=== PATIENT | female | born 1930 | race Caucasian/White ===

== ENCOUNTER 2018-05-11 09:02 | Observation (INO) | payer MEDICARE ==
[~2018-05-11] VITALS: Ht 172.7 cm; Wt 62.1 kg
[2018-05-11] MEDS ORDERED: VERA120T5 PO (09:38)
[2018-05-11] MEDS ORDERED: METF500T27 PO (09:38)
[2018-05-11] MEDS ORDERED: FLEC50TA25 PO (09:39)
[2018-05-11] MEDS ORDERED: GABA300C10 PO (09:39)
[2018-05-11] MEDS ORDERED: APIX5TAB PO (09:41)
[2018-05-11 09:49] LABS: ALBUMIN 3.8 g/dL (3.4-5.0); ANION GAP 8 mmol/L (5-15); CALCIUM 8.7 mg/dL (8.5-10.1); CHLORIDE 107 mmol/L (98-107); CREATININE 0.91 mg/dL (0.55-1.02)
[2018-05-11 09:53] LABS: TROPONIN I < 0.015 ng/mL (0.000-0.045)
[2018-05-11 09:54] LABS: BASOPHILS # (AUTO) 0.04 x10^3/uL (0-0.1); BASOPHILS % (AUTO) 1 % (0-1); EOSINOPHILS # (AUTO) 0.12 x10^3/uL (0-0.4); EOSINOPHILS % (AUTO) 2 % (1-7); LYMPHOCYTES # (AUTO) 1.52 x10^3/uL (1-3.4); LYMPHOCYTES % (AUTO) 27 % (22-44); MD NO; MEAN CORPUSCULAR HEMOGLOBIN 30.2 pg (27.0-34.8); MEAN CORPUSCULAR HGB CONC 33.1 g/dL (32.4-35.8); MEAN CORPUSCULAR VOLUME 91.2 fL (80-100); MEAN PLATELET VOLUME 7.8 fL (7.4-10.4); MONOCYTES % (AUTO) 11 % (2-9); NEUTROPHILS # (AUTO) 3.27 x10^3/uL (1.8-6.8); NEUTROPHILS % (AUTO) 59 % (42-75); PLATELET COUNT 223 x10^3/uL (130-400); RED BLOOD COUNT 4.83 x10^6/uL (3.82-5.3)
[2018-05-11] MEDS ORDERED: APIXABAN 5 MG TABLET ONE ×2 (10:36→10:37)
[2018-05-11] MEDS ORDERED: APIXABAN 5 MG TABLET PO ONE (11:00)
[2018-05-11 14:00] VITALS: BP 138/72
[2018-05-11] MEDS ORDERED: ONDANSETRON ODT 4 MG PO PRN (14:30)
[2018-05-11] MEDS ORDERED: ONDANSETRON 2MG/ML, 2ML IVPush PRN (14:30)
[2018-05-11] MEDS ORDERED: ZOLPIDEM 5MG TABLET PO PRN (14:30)
[2018-05-11] MEDS ORDERED: DOCUSATE 100 MG CAPSULE PO PRN (14:30)
[2018-05-11] MEDS ORDERED: BISACODYL 10 MG SUPP PR PRN (14:30)
[2018-05-11] MEDS ORDERED: ACETAMINOPHEN 325 MG TABLET PO PRN (14:30)
[2018-05-11] MEDS ORDERED: hydrALAzine 20 MG/ML, 1ML IVPush PRN (14:30)
[2018-05-11 14:55] LABS: HCT (SEDRATE) 41.9 % (34.6-47.8)
[2018-05-11 15:07] LABS: FREE T4 (FREE THYROXINE) 1.13 ng/dL (0.76-1.46); TROPONIN I < 0.015 ng/mL (0.000-0.045)
[2018-05-11 16:03] LABS: CULTURE INDICATED? YES; MICROSCOPIC AUTO
[2018-05-11 20:19] VITALS: BP 145/76
[2018-05-11] MEDS: metFORMIN 500 MG TABLET PO SCH (20:32)
[2018-05-11] MEDS: FLECAINIDE 50MG TABLET PO SCH (20:32)
[2018-05-11] MEDS: VERAPAMIL 120MG TABLET PO SCH (20:32)
[2018-05-11] MEDS: APIXABAN 5 MG TABLET PO SCH (20:33)
[2018-05-11 20:49] LABS: TROPONIN I < 0.015 ng/mL (0.000-0.045)
[2018-05-12 01:25] VITALS: BP 110/60
[2018-05-12 06:00] LABS: BASOPHILS # (AUTO) 0.04 x10^3/uL (0-0.1); BASOPHILS % (AUTO) 1 % (0-1); EOSINOPHILS % (AUTO) 4 % (1-7); LYMPHOCYTES # (AUTO) 1.97 x10^3/uL (1-3.4); LYMPHOCYTES % (AUTO) 36 % (22-44); MD NO; MEAN CORPUSCULAR HEMOGLOBIN 31.3 pg (27.0-34.8); MEAN CORPUSCULAR HGB CONC 34.1 g/dL (32.4-35.8); MEAN CORPUSCULAR VOLUME 91.8 fL (80-100); MEAN PLATELET VOLUME 7.4 fL (7.4-10.4); MONOCYTES # (AUTO) 0.58 x10^3/uL (0.2-0.8); MONOCYTES % (AUTO) 11 % (2-9); NEUTROPHILS # (AUTO) 2.68 x10^3/uL (1.8-6.8); NEUTROPHILS % (AUTO) 49 % (42-75); PLATELET COUNT 184 x10^3/uL (130-400); RED BLOOD COUNT 4.23 x10^6/uL (3.82-5.3); RED CELL DISTRIBUTION WIDTH 14.1 % (9.6-15.2)
[2018-05-12 06:11] LABS: ANION GAP 7 mmol/L (5-15); CALCIUM 8.5 mg/dL (8.5-10.1); CHLORIDE 111 mmol/L (98-107)
[2018-05-12 06:15] LABS: CHOL/HDL RATIO 2.4; CHOLESTEROL, TOTAL 174 mg/dL (140-239); CREATININE 0.74 mg/dL (0.55-1.02); HDL CHOL % 43 % (28-40); HDL CHOLESTEROL (DIRECT) 74 mg/dL (40-60); LDL CHOLESTEROL,CALCULATED 83 mg/dL (54-169); LDL/HDL RATIO 1.1 (0.5-3.0); TRIGLYCERIDES 84 mg/dL (50-200); VLDL CHOLESTEROL 17 mg/dL (0-25)
[2018-05-12 07:18] VITALS: BP 152/69
[2018-05-12] MEDS ORDERED: GABAPENTIN 100 MG CAPSULE PO SCH (09:00)
[2018-05-12] MEDS: APIXABAN 5 MG TABLET PO SCH (10:03)
[2018-05-12] MEDS: FLECAINIDE 50MG TABLET PO SCH (10:03)
[2018-05-12] MEDS: metFORMIN 500 MG TABLET PO SCH (10:03)
[2018-05-12] MEDS: VERAPAMIL 120MG TABLET PO SCH (10:03)
== END 2018-05-12 16:01 | disposition home or self-care (01) ==
LOC: ED 09:44 → INTOOBSV 10:53 → EDIP 10:53 → 5SO 13:00
PROVIDERS: ADMIT Hospitalist; ATTEND Hospitalist
DX: R42 Dizziness and giddiness (principal); R11.0 Nausea; I48.0 Paroxysmal atrial fibrillation; E11.40 Type 2 diabetes mellitus with diabetic neuropathy, unspecified; Z79.82 Long term (current) use of aspirin; Z83.3 Family history of diabetes mellitus
CPT/HCPCS: 36415; 71045; 80048; 80061; 81001; 82040; 83880; 84439; 84443; 84484; 85025; 85651; 87086; 93005; 93306; 97161; 99284; G0378; G8978; G8979; G8980

== ENCOUNTER 2018-05-23 10:55 | Emergency (ER) | payer MEDICARE ==
[~2018-05-23] VITALS: Ht 175.3 cm; Wt 77.0 kg
[~2018-05-23 10:55] MED LIST: APIX5TAB PO; FLEC50TA25 PO; GABA300C10 PO; METF500T27 PO; VERA120T5 PO
--- NOTE | 2018-05-23 11:11 | NUR ---
PT STRAIGHT BACK FROM LOBBY FOR C/O CP AND FEELING OF ARRYTHMIA APPROX 30 MINUTES.
[2018-05-23 11:12] VITALS: BP 149/56
[2018-05-23 11:53] LABS: BASOPHILS # (AUTO) 0.03 x10^3/uL (0-0.1); BASOPHILS % (AUTO) 1 % (0-1); EOSINOPHILS # (AUTO) 0.13 x10^3/uL (0-0.4); EOSINOPHILS % (AUTO) 2 % (1-7); LYMPHOCYTES # (AUTO) 1.58 x10^3/uL (1-3.4); LYMPHOCYTES % (AUTO) 25 % (22-44); MD NO; MEAN CORPUSCULAR HGB CONC 33.7 g/dL (32.4-35.8); MEAN CORPUSCULAR VOLUME 92.1 fL (80-100); MEAN PLATELET VOLUME 7.1 fL (7.4-10.4); MONOCYTES # (AUTO) 0.75 x10^3/uL (0.2-0.8); MONOCYTES % (AUTO) 12 % (2-9); NEUTROPHILS # (AUTO) 3.75 x10^3/uL (1.8-6.8); NEUTROPHILS % (AUTO) 60 % (42-75); PLATELET COUNT 203 x10^3/uL (130-400); RED BLOOD COUNT 4.55 x10^6/uL (3.82-5.3); RED CELL DISTRIBUTION WIDTH 13.7 % (9.6-15.2)
[2018-05-23 12:03] LABS: ALBUMIN 3.6 g/dL (3.4-5.0); ANION GAP 3 mmol/L (5-15); CALCIUM 8.9 mg/dL (8.5-10.1); CHLORIDE 109 mmol/L (98-107)
[2018-05-23 12:06] LABS: TROPONIN I < 0.015 ng/mL (0.000-0.045)
--- NOTE | 2018-05-23 12:25 | NUR ---
patient remains safe in bed in room with daughter at bedside, no acute changes noted, no chest pains now, recheck status.
== END 2018-05-23 14:21 | disposition home or self-care (01) ==
LOC: ED 11:35
DX: R07.89 Other chest pain (principal); I48.91 Unspecified atrial fibrillation; E11.9 Type 2 diabetes mellitus without complications; Z90.49 Acquired absence of other specified parts of digestive tract
CPT/HCPCS: 36415; 80048; 82040; 84484; 85025; 93005; 99284

== ENCOUNTER 2019-03-23 15:21 | Inpatient (IN) | payer MEDICARE ==
[~2019-03-23] VITALS: Ht 175.3 cm; Wt 81.6 kg
[2019-03-23 16:21] LABS: BASOPHILS # (AUTO) 0.04 x10^3/uL (0-0.1); BASOPHILS % (AUTO) 1 % (0-1); EOSINOPHILS # (AUTO) 0.15 x10^3/uL (0-0.4); EOSINOPHILS % (AUTO) 2 % (1-7); LYMPHOCYTES # (AUTO) 2.18 x10^3/uL (1-3.4); LYMPHOCYTES % (AUTO) 31 % (22-44); MD NO; MEAN CORPUSCULAR HEMOGLOBIN 32.3 pg (27.0-34.8); MEAN CORPUSCULAR HGB CONC 33.5 g/dL (32.4-35.8); MEAN CORPUSCULAR VOLUME 96.5 fL (80-100); MEAN PLATELET VOLUME 7.2 fL (7.4-10.4); MONOCYTES % (AUTO) 10 % (2-9); NEUTROPHILS # (AUTO) 4.02 x10^3/uL (1.8-6.8); NEUTROPHILS % (AUTO) 57 % (42-75); PLATELET COUNT 225 x10^3/uL (130-400); RED BLOOD COUNT 4.93 x10^6/uL (3.82-5.3); RED CELL DISTRIBUTION WIDTH 15.6 % (9.6-15.2)
[2019-03-23 16:29] LABS: ALANINE AMINOTRANSFERASE 18 U/L (12-78); ALBUMIN 3.9 g/dL (3.4-5.0); ANION GAP 8 mmol/L (5-15); CALCIUM 9.2 mg/dL (8.5-10.1); CHLORIDE 108 mmol/L (98-107); CREATININE 0.89 mg/dL (0.55-1.02)
[2019-03-23 16:33] LABS: ALKALINE PHOSPHATASE 87 U/L (45-117); BILIRUBIN,TOTAL 0.9 mg/dL (0.2-1.0); TOTAL PROTEIN 7.6 g/dL (6.4-8.2); TROPONIN I < 0.015 ng/mL (0.000-0.045)
--- NOTE | 2019-03-23 17:56 | NUR ---
Pt transfered from ED room to CT on sahra. NEPTALI. No needs expressed.
[2019-03-23 18:09] LABS: MICROSCOPIC NOT IND
[2019-03-23 18:11] LABS: CULTURE INDICATED? NO
[2019-03-23] MEDS ORDERED: hydrALAzine 20 MG/ML, 1ML ONE (18:24)
[2019-03-23] MEDS ORDERED: hydrALAzine 20 MG/ML, 1ML IV ONE (18:30)
--- NOTE | 2019-03-23 18:57 | NUR ---
Provided report to LATONIA Jalloh. All questions answered. LATONIA Jalloh to assume care of pt at this time.
[2019-03-23] MEDS ORDERED: VALA10004 PO ×2 (19:14→19:16)
[2019-03-23] MEDS ORDERED: GABA300C10 PO (19:14)
[2019-03-23] MEDS ORDERED: VERA120T5 PO (19:14)
--- NOTE | 2019-03-23 19:17 | NUR ---
pt resting on gurney, family at bedside, siderails up x2, call light within reach. awaiting admit
--- NOTE | 2019-03-23 19:59 | NUR ---
purwick catheter with suction placed
[2019-03-23 20:51] VITALS: BP 180/70
[2019-03-23] MEDS ORDERED: TEMAZEPAM 15 MG CAPSULE PO PRN (21:00)
[2019-03-23] MEDS ORDERED: ENALAPRILAT 1.25 MG/ML, 2ML IV PRN (21:00)
[2019-03-23] MEDS ORDERED: ONDANSETRON 2MG/ML, 2ML IVPush PRN (21:00)
[2019-03-23] MEDS ORDERED: ACETAMINOPHEN 650 MG/20.3 ML UDC PO PRN (21:00)
[2019-03-23] MEDS ORDERED: morphine SULFATE 10 MG/ML, 1ML IVPush PRN (21:00)
[2019-03-23] MEDS ORDERED: VALACYCLOVIR 500MG TABLET PO SCH (21:30)
[2019-03-23] MEDS ORDERED: LORazepam 2 MG/ML, 1ML IVPush ONE (21:30)
[2019-03-23 21:38] LABS: TROPONIN I < 0.015 ng/mL (0.000-0.045)
[2019-03-23 21:40] VITALS: BP 179/74
[2019-03-23 22:00] VITALS: BP 164/80
[2019-03-23] MEDS: INSULIN LISPRO 100 UNITS/ML, PEN SQ-INSULIN SCH (23:00)
[2019-03-23] MEDS ORDERED: VALACYCLOVIR 500MG TABLET ONE (23:07)
[2019-03-23] MEDS: FLECAINIDE 50MG TABLET PO SCH (23:11)
[2019-03-23] MEDS: ATORVASTATIN 40 MG TABLET PO SCH (23:11)
[2019-03-23] MEDS: GABAPENTIN 100 MG CAPSULE PO SCH (23:11)
[2019-03-23] MEDS: APIXABAN 5 MG TABLET PO SCH (23:11)
[2019-03-24] VITALS (11 sets, daily range): BP systolic 112–160; BP diastolic 63–82
[2019-03-24] MEDS ORDERED: DEXTROSE 4 GM TAB.CHEW PO PRN
[2019-03-24] MEDS ORDERED: GLUCAGON 1 MG IM PRN
[2019-03-24] MEDS ORDERED: DEXTROSE 50%, 50ML SYRINGE IVPush PRN
[2019-03-24 02:50] LABS: BASOPHILS # (AUTO) 0.03 x10^3/uL (0-0.1); BASOPHILS % (AUTO) 0 % (0-1); EOSINOPHILS # (AUTO) 0.05 x10^3/uL (0-0.4); EOSINOPHILS % (AUTO) 1 % (1-7); LYMPHOCYTES # (AUTO) 1.34 x10^3/uL (1-3.4); LYMPHOCYTES % (AUTO) 19 % (22-44); MD NO; MEAN CORPUSCULAR HEMOGLOBIN 32.2 pg (27.0-34.8); MEAN CORPUSCULAR HGB CONC 33.5 g/dL (32.4-35.8); MEAN CORPUSCULAR VOLUME 96.3 fL (80-100); MEAN PLATELET VOLUME 7.1 fL (7.4-10.4); MONOCYTES # (AUTO) 0.73 x10^3/uL (0.2-0.8); MONOCYTES % (AUTO) 10 % (2-9); NEUTROPHILS # (AUTO) 5.12 x10^3/uL (1.8-6.8); NEUTROPHILS % (AUTO) 70 % (42-75); PLATELET COUNT 204 x10^3/uL (130-400); RED BLOOD COUNT 4.45 x10^6/uL (3.82-5.3); RED CELL DISTRIBUTION WIDTH 15.4 % (9.6-15.2)
[2019-03-24 02:58] LABS: ANION GAP 3 mmol/L (5-15); CALCIUM 8.7 mg/dL (8.5-10.1); CHLORIDE 111 mmol/L (98-107)
[2019-03-24 03:03] LABS: CHOL/HDL RATIO 2.7; CHOLESTEROL, TOTAL 172 mg/dL (140-239); CREATININE 0.79 mg/dL (0.55-1.02); HDL CHOL % 37 % (28-40); HDL CHOLESTEROL (DIRECT) 63 mg/dL (40-60); LDL CHOLESTEROL,CALCULATED 94 mg/dL (54-169); LDL/HDL RATIO 1.5 (0.5-3.0); TRIGLYCERIDES 77 mg/dL (50-200); TROPONIN I < 0.015 ng/mL (0.000-0.045); VLDL CHOLESTEROL 15 mg/dL (0-25)
[2019-03-24] MEDS: SODIUM CHLORIDE FLUSH 10ML SYR IVF SCH ×2 (08:35→21:44)
[2019-03-24] MEDS: INSULIN LISPRO 100 UNITS/ML, PEN SQ-INSULIN SCH ×4 (08:35→21:00)
[2019-03-24] MEDS ORDERED: VALACYCLOVIR 500MG TABLET PO SCH (09:00)
[2019-03-24] MEDS ORDERED: ASPIRIN 81 MG TABLET CHEW PO/NG SCH (09:00)
[2019-03-24 09:32] LABS: TROPONIN I < 0.015 ng/mL (0.000-0.045)
[2019-03-24] MEDS: VERAPAMIL 120MG TABLET PO SCH (09:42)
[2019-03-24] MEDS: GABAPENTIN 100 MG CAPSULE PO SCH ×3 (09:42→21:43)
[2019-03-24] MEDS: FLECAINIDE 50MG TABLET PO SCH ×2 (09:42→21:43)
[2019-03-24] MEDS: APIXABAN 5 MG TABLET PO SCH ×2 (09:43→21:43)
[2019-03-24] MEDS: ATORVASTATIN 40 MG TABLET PO SCH (21:43)
[2019-03-25] VITALS: BP 128/73
[2019-03-25 03:57] VITALS: BP 153/71
[2019-03-25 06:47] VITALS: BP 155/65
[2019-03-25] MEDS: INSULIN LISPRO 100 UNITS/ML, PEN SQ-INSULIN SCH ×2 (08:27→11:36)
[2019-03-25] MEDS: FLECAINIDE 50MG TABLET PO SCH (08:54)
[2019-03-25] MEDS: GABAPENTIN 100 MG CAPSULE PO SCH (08:54)
[2019-03-25] MEDS: SODIUM CHLORIDE FLUSH 10ML SYR IVF SCH (08:54)
[2019-03-25] MEDS: APIXABAN 5 MG TABLET PO SCH (08:54)
[2019-03-25] MEDS: VERAPAMIL 120MG TABLET PO SCH (08:54)
[2019-03-25 08:59] VITALS: BP 143/73
[2019-03-25] MEDS ORDERED: ASPIRIN 81 MG TABLET CHEW PO/NG SCH (09:00)
[2019-03-25 12:27] VITALS: BP 124/74
[2019-03-25 12:33] VITALS: BP 105/65
[2019-03-25] MEDS ORDERED: ATOR40TA78 PO (14:32)
== END 2019-03-25 16:10 | disposition home health service (06) | DRG 69 ==
LOC: ED 19:20 → EDIP 19:22 → 4EST 21:04 → DCLOUNGE 03-25 15:57
PROVIDERS: ADMIT Family Medicine; ATTEND Hospitalist
DX: G45.9 Transient cerebral ischemic attack, unspecified (principal); D68.59 Other primary thrombophilia; M16.11 Unilateral primary osteoarthritis, right hip; E11.40 Type 2 diabetes mellitus with diabetic neuropathy, unspecified; I48.0 Paroxysmal atrial fibrillation; H91.90 Unspecified hearing loss, unspecified ear; E11.649 Type 2 diabetes mellitus with hypoglycemia without coma; Z96.642 Presence of left artificial hip joint; I16.0 Hypertensive urgency; I10 Essential (primary) hypertension; Z82.3 Family history of stroke; Z83.3 Family history of diabetes mellitus; Z79.01 Long term (current) use of anticoagulants; Z87.891 Personal history of nicotine dependence
CPT/HCPCS: 36415; 70450; 70551; 71045; 72131; 72192; 80048; 80053; 80061; 81003; 82962; 83036; 84484; 85025; 93005; 93306; 93880; 96374; G0378; J0360; J1815; J2060; J2270

== ENCOUNTER 2019-03-27 16:48 | Emergency (ER) | payer MEDICARE ==
[~2019-03-27] VITALS: Ht 175.3 cm; Wt 80.0 kg
[~2019-03-27 16:48] MED LIST changes: +ATOR40TA78 PO; +VALA10004 PO
--- NOTE | 2019-03-27 17:10 | NUR ---
EKG being performed in triage.
[2019-03-27] MEDS ORDERED: ASPIRIN 81 MG TABLET CHEW PO ONE (17:30)
[2019-03-27 18:16] LABS: BASOPHILS # (AUTO) 0.04 x10^3/uL (0-0.1); BASOPHILS % (AUTO) 1 % (0-1); EOSINOPHILS # (AUTO) 0.23 x10^3/uL (0-0.4); EOSINOPHILS % (AUTO) 4 % (1-7); LYMPHOCYTES # (AUTO) 1.84 x10^3/uL (1-3.4); LYMPHOCYTES % (AUTO) 30 % (22-44); MD NO; MEAN CORPUSCULAR HEMOGLOBIN 32.3 pg (27.0-34.8); MEAN CORPUSCULAR HGB CONC 32.9 g/dL (32.4-35.8); MEAN CORPUSCULAR VOLUME 98.2 fL (80-100); MEAN PLATELET VOLUME 7.4 fL (7.4-10.4); MONOCYTES # (AUTO) 0.71 x10^3/uL (0.2-0.8); MONOCYTES % (AUTO) 12 % (2-9); NEUTROPHILS # (AUTO) 3.36 x10^3/uL (1.8-6.8); NEUTROPHILS % (AUTO) 54 % (42-75); PLATELET COUNT 232 x10^3/uL (130-400); RED BLOOD COUNT 4.71 x10^6/uL (3.82-5.3); RED CELL DISTRIBUTION WIDTH 15.6 % (9.6-15.2)
[2019-03-27 18:18] LABS: ALANINE AMINOTRANSFERASE 23 U/L (12-78); ALBUMIN 3.6 g/dL (3.4-5.0); ANION GAP 7 mmol/L (5-15); CALCIUM 9.1 mg/dL (8.5-10.1); CHLORIDE 107 mmol/L (98-107); CREATININE 0.87 mg/dL (0.55-1.02)
[2019-03-27 18:22] LABS: ALKALINE PHOSPHATASE 73 U/L (45-117); BILIRUBIN,TOTAL 0.7 mg/dL (0.2-1.0); TROPONIN I < 0.015 ng/mL (0.000-0.045)
--- NOTE | 2019-03-27 19:11 | NUR ---
PT. TO ROOM FROM LOBBY. [place] WITH PT. ASSIST PT. TO BATHROOM IN ED 41.
--- NOTE | 2019-03-27 19:30 | NUR ---
PT. HAD VOIDED BUT UNABLE TO PROVIDE CLEAN CATCH UA. ATTEMPTED STRAIGHT CATH BUT NO URINE RETURN. PT. PLACED ON ALL MONITORS. PT. IS RESTING ON GURNEY WITH NO APPARENT DISTRESS. WARM BLANKET PROVIDED. PT. USING DAUGHTERS PHONE PT. IS DEAF AND CAN COMMUNICATE WITH STAFF BY READING WITH VOICE TO TEXT. LABS ARE BACK, EKG WAS DONE IN TRIAGE. PT. AWAITING PROVIDER EVAL. CALL LIGHT IN REACH. FAMILY AT BS. ALL SAFETY MEASURES OBSERVED.
--- NOTE | 2019-03-27 20:00 | NUR ---
DR. MAYERS IN TO EVAL PT. AND DISCUSS POC WITH PT. AND FAMILY. PER DR. MAYERS PROVIDE PT. WITH WATER TO DRINK AND PERFORM STRAIGHT CATH AGAIN WHEN BLADDER SCANNER SHOWS URINE IN BLADDER. WATER PROVIDED. NO ASA TO BE GIVEN PER DR. MAYERS.
--- NOTE | 2019-03-27 20:20 | NUR ---
STRAIGHT CATH UA COLLECTED PER ORDER AFTER PT. ABLE TO DRINK 2 CUPS OF WATER. PT. TOLERATED WELL. WALKED TO LAB. DAUGHTER REAMINS AT FOR SUPPORT. ALL MONITORS AND SAFETY MEASURES IN PLACE. CALL CEFERINO IN REACH.
[2019-03-27 20:57] LABS: MICROSCOPIC NOT IND
[2019-03-27 21:00] LABS: CULTURE INDICATED? NO
--- NOTE | 2019-03-27 21:05 | NUR ---
DR. MAYERS IN TO DISCUSS ED FINDINGS WITH PT. AND FAMILY AT BS.
[2019-03-27 21:13] VITALS: BP 163/66
--- NOTE | 2019-03-27 21:23 | NUR ---
AWAITING D/C PAPERS TO D/C PT.
== END 2019-03-27 21:34 | disposition home or self-care (01) ==
LOC: ED 21:25
DX: R00.2 Palpitations (principal); I10 Essential (primary) hypertension; E11.9 Type 2 diabetes mellitus without complications; I48.91 Unspecified atrial fibrillation; Z90.49 Acquired absence of other specified parts of digestive tract
CPT/HCPCS: 36415; 71045; 80053; 81003; 84484; 85025; 93005; 99284

== ENCOUNTER → 2020-09-06 | Outpatient (CLI) | payer MEDICARE ==
[~2020-09-06] MED LIST changes: +VERA120T13 PO; -VERA120T5 PO
== END | disposition home or self-care (01) ==
LOC: RAD 15:37
PROVIDERS: ATTEND Physician Assistant Surgical
DX: M16.11 Unilateral primary osteoarthritis, right hip (principal); M25.751 Osteophyte, right hip; Z96.642 Presence of left artificial hip joint